=== PATIENT | male | born 1990 | race Caucasian/White ===

== ENCOUNTER 2024-08-28 16:12 | Emergency (ER) | payer BC ==
[~2024-08-28] VITALS: Ht 185.4 cm; Wt 70.3 kg
[2024-08-28] MEDS: ONDANSETRON HCL/PF 4 MG/2 ML VIAL IVP ONE (16:30)
[2024-08-28] MEDS: IV NS 0.9% 1,000 ML BAG IV ONE (16:30)
[2024-08-28 16:41] LABS: PLATELET COUNT (AUTO) 233 K/uL (150-450); RED BLOOD CELL COUNT(AUTO) 5.46 MIL/uL (4.5-6.0); RED CELL DISTRIBUTION WIDTH 14.3 % (11.5-15.0); WHITE BLOOD COUNT (AUTO) 8.8 K/uL (4.3-11.0)
[2024-08-28] MEDS ORDERED: ONDANSETRON HCL/PF 4 MG/2 ML VIAL ONE (16:47)
[2024-08-28 16:48] LABS: CALCIUM, SERUM 9.0 mg/dL (8.5-10.1); CREATININE 0.9 mg/dL (0.6-1.3); SODIUM SERUM 139.0 mmol/L (136-145); UREA NITROGEN, BLOOD 5.0 mg/dL (7-18)
[2024-08-28 16:53] LABS: ASPARTATE AMINOTRANSFERASE 16.0 U/L (15-37); TOTAL PROTEIN, SERUM 7.7 g/dL (6.4-8.2)
[2024-08-28] MEDS: DICYCLOMINE HCL INJ 20 MG/2 ML AMPUL IM ONE (17:00)
[2024-08-28] MEDS ORDERED: DICYCLOMINE HCL INJ 20 MG/2 ML AMPUL IM ONE (17:17)
[2024-08-28] MEDS ORDERED: ONDA4TAB11 PO (18:16)
[2024-08-28] MEDS ORDERED: DICY10CA13 PO (18:16)
[2024-08-28 20:11] VITALS: BP 125/70; TEMP 98; O2SAT 97
== END 2024-08-28 20:12 | disposition home or self-care (01) ==
LOC: ER 16:22
DX: K29.70 Gastritis, unspecified, without bleeding (principal); F17.200 Nicotine dependence, unspecified, uncomplicated
CPT/HCPCS: 99284; 96374; 96361; 85025; 80048; 83690; 80076; 36415; 96372; J2405; J7030; J0500

== ENCOUNTER 2024-09-04 20:53 | Emergency (ER) | payer BC ==
[~2024-09-04] VITALS: Ht 185.4 cm; Wt 70.3 kg
[~2024-09-04 20:53] MED LIST: DICY10CA13 PO; ONDA4TAB11 PO
[2024-09-04 21:18] VITALS: BP 127/77; TEMP 97.9; O2SAT 99
[2024-09-04] MEDS ORDERED: DIPH25CA83 PO (21:30)
[2024-09-04] MEDS ORDERED: FAMO40TA7 PO (21:30)
[2024-09-04] MEDS ORDERED: HYDR50TA61 PO (22:00)
[2024-09-04] MEDS: IV NS 0.9% 1,000 ML BAG IV ONE (22:05)
== END 2024-09-04 23:53 | disposition home or self-care (01) ==
LOC: ER 21:15
DX: B34.9 Viral infection, unspecified (principal); R21 Rash and other nonspecific skin eruption; F17.200 Nicotine dependence, unspecified, uncomplicated
CPT/HCPCS: 99283; 96374; 96361; J1200; J7030